=== PATIENT | male | born 1965 | race Caucasian/White ===

== ENCOUNTER → 2017-05-18 | Outpatient (CLI) | payer MEDICAID | END | disposition home or self-care (01) | LOC: PETCFH 10:46 | PROVIDERS: ATTEND Specialist | DX: C79.51 Secondary malignant neoplasm of bone (principal); C61 Malignant neoplasm of prostate | CPT/HCPCS: 78306; A9503 ==

== ENCOUNTER 2017-08-12 18:47 | Emergency (ER) | payer MEDICAID ==
[~2017-08-12] VITALS: Ht 182.9 cm; Wt 87.5 kg
[2017-08-12 18:49] VITALS: BP 137/83
[2017-08-12] MEDS ORDERED: DIPH,PERTUSS(ACELL),TET VAC/PF 0.5 ML IM-VACC ONE ×2 (19:30→19:59)
[2017-08-12] MEDS ORDERED: CIPROFLOXACIN 500 MG TABLET ONE (20:25)
[2017-08-12] MEDS ORDERED: CIPROFLOXACIN 500 MG TABLET PO ONE (20:30)
== END 2017-08-12 20:46 | disposition home or self-care (01) ==
LOC: ED 20:40
DX: S91.331A Puncture wound without foreign body, right foot, initial encounter (principal); J45.909 Unspecified asthma, uncomplicated; Z85.9 Personal history of malignant neoplasm, unspecified; W45.0XXA Nail entering through skin, initial encounter; Y93.89 Activity, other specified; Y92.098 Other place in other non-institutional residence as the place of occurrence of the external cause; Y99.8 Other external cause status
CPT/HCPCS: 90715; 96372; 99284

== ENCOUNTER → 2017-08-27 | Outpatient (CLI) | payer MEDICAID | END | disposition home or self-care (01) | LOC: ROC 10:39 | PROVIDERS: ATTEND Radiology Radiation Oncology | DX: C61 Malignant neoplasm of prostate (principal) | CPT/HCPCS: 99214; G0463 ==

== ENCOUNTER → 2017-10-21 | Outpatient (CLI) | payer MEDICAID | END | disposition home or self-care (01) | LOC: PETCFH 08:29 | PROVIDERS: ATTEND Specialist | DX: C79.51 Secondary malignant neoplasm of bone (principal); C61 Malignant neoplasm of prostate | CPT/HCPCS: 78306; A9503 ==

== ENCOUNTER 2018-02-23 15:05 | Emergency (ER) | payer MEDICAID ==
[~2018-02-23] VITALS: Ht 180.3 cm; Wt 81.9 kg
[2018-02-23 15:51] LABS: ALANINE AMINOTRANSFERASE 23 U/L (12-78); ALBUMIN 3.7 g/dL (3.4-5.0); ANION GAP 6 mmol/L (5-15); CALCIUM 8.6 mg/dL (8.5-10.1); CHLORIDE 108 mmol/L (98-107)
[2018-02-23 15:54] LABS: ALKALINE PHOSPHATASE 59 U/L (45-117); BILIRUBIN,TOTAL 0.5 mg/dL (0.2-1.0); CREATININE 1.01 mg/dL (0.7-1.3); TOTAL PROTEIN 7.4 g/dL (6.4-8.2)
[2018-02-23 15:56] LABS: MEAN CORPUSCULAR HEMOGLOBIN 31.1 pg (27.5-34.5); MEAN CORPUSCULAR HGB CONC 34.7 g/dL (33.2-36.2); MEAN CORPUSCULAR VOLUME 89.5 fL (81-97); PLATELET COUNT 186 x10^3/uL (130-400); RED BLOOD COUNT 4.87 x10^6/uL (4.38-5.82); RED CELL DISTRIBUTION WIDTH 13.1 % (9.4-14.8)
[2018-02-23 15:57] LABS: BASOPHILS # (AUTO) 0.13 x10^3/uL (0-0.1); EOSINOPHILS # (AUTO) 0.37 x10^3/uL (0-0.4); EOSINOPHILS % (AUTO) 4 % (1-7); LYMPHOCYTES # (AUTO) 2.22 x10^3/uL (1-3.4); LYMPHOCYTES % (AUTO) 26 % (22-44); MD NO; MEAN PLATELET VOLUME 8.4 fL (7.4-10.4); MONOCYTES # (AUTO) 0.52 x10^3/uL (0.2-0.8); MONOCYTES % (AUTO) 6 % (2-9); NEUTROPHILS # (AUTO) 5.31 x10^3/uL (1.8-6.8); NEUTROPHILS % (AUTO) 62 % (42-75)
[2018-02-23 15:58] LABS: BASOPHILS % (AUTO) 2 % (0-1)
[2018-02-23 16:04] LABS: TROPONIN I < 0.015 ng/mL (0.000-0.045)
[2018-02-23 16:59] VITALS: BP 126/90
== END 2018-02-23 17:06 | disposition home or self-care (01) ==
LOC: ED 17:00
DX: R00.2 Palpitations (principal); R42 Dizziness and giddiness; J45.909 Unspecified asthma, uncomplicated; Z85.830 Personal history of malignant neoplasm of bone; Z85.46 Personal history of malignant neoplasm of prostate
CPT/HCPCS: 36415; 70450; 71045; 80053; 84484; 85025; 93005; 99284

== ENCOUNTER 2018-04-12 16:14 | Emergency (ER) | payer MEDICAID ==
[~2018-04-12] VITALS: Ht 180.3 cm; Wt 83.0 kg
--- NOTE | 2018-04-12 16:38 | NUR ---
Assumed care of patient. C/O anxiety and high BP at home. NAD. Normal BP in ER. SO at bedside. Will continue to monitor.
[2018-04-12 16:40] LABS: BASOPHILS # (AUTO) 0.05 x10^3/uL (0-0.1); BASOPHILS % (AUTO) 1 % (0-1); EOSINOPHILS # (AUTO) 0.31 x10^3/uL (0-0.4); EOSINOPHILS % (AUTO) 4 % (1-7); LYMPHOCYTES # (AUTO) 1.44 x10^3/uL (1-3.4); LYMPHOCYTES % (AUTO) 20 % (22-44); MD NO; MEAN CORPUSCULAR HEMOGLOBIN 31.2 pg (27.5-34.5); MEAN CORPUSCULAR HGB CONC 34.7 g/dL (33.2-36.2); MEAN CORPUSCULAR VOLUME 89.9 fL (81-97); MEAN PLATELET VOLUME 8.4 fL (7.4-10.4); MONOCYTES # (AUTO) 0.36 x10^3/uL (0.2-0.8); MONOCYTES % (AUTO) 5 % (2-9); NEUTROPHILS # (AUTO) 4.95 x10^3/uL (1.8-6.8); NEUTROPHILS % (AUTO) 70 % (42-75); PLATELET COUNT 180 x10^3/uL (130-400); RED BLOOD COUNT 4.77 x10^6/uL (4.38-5.82); RED CELL DISTRIBUTION WIDTH 12.6 % (9.4-14.8)
[2018-04-12 16:50] LABS: ALBUMIN 3.8 g/dL (3.4-5.0); ANION GAP 5 mmol/L (5-15); CALCIUM 8.4 mg/dL (8.5-10.1); CHLORIDE 110 mmol/L (98-107); CREATININE 0.97 mg/dL (0.7-1.3)
[2018-04-12 17:42] VITALS: BP 111/59
--- NOTE | 2018-04-12 17:42 | NUR ---
Resting in gureny. VSS. No needs.
--- NOTE | 2018-04-12 18:14 | NUR ---
Patient/Caregiver given discharge instructions and they have confirmed that they understand the instructions. Patient ambulatory with steady gait.
== END 2018-04-12 18:14 | disposition home or self-care (01) ==
LOC: ED 18:00
DX: F41.1 Generalized anxiety disorder (principal); J45.909 Unspecified asthma, uncomplicated; Z85.46 Personal history of malignant neoplasm of prostate
CPT/HCPCS: 36415; 80048; 82040; 85025; 93005; 99284

== ENCOUNTER → 2018-09-10 | Outpatient (CLI) | payer MEDICAID ==
[~2018-09-10] MED LIST: OMNIPAQUE 350 MG/ML, 100ML BOTTLE ONE
== END | disposition home or self-care (01) ==
LOC: PETCFH 09:19
PROVIDERS: ATTEND Internal Medicine Hematology & Oncology
DX: C79.51 Secondary malignant neoplasm of bone (principal); C61 Malignant neoplasm of prostate
CPT/HCPCS: 71260; 74177; 78306; A9503; Q9967